=== PATIENT | female | born 1985 | race Hispanic/Latino ===

== ENCOUNTER 2018-12-19 18:22 | Observation (INO) | payer MEDICAID ==
[~2018-12-19] VITALS: Ht 170.2 cm; Wt 97.1 kg
[~2018-12-19 18:22] MED LIST: ACET-2743 PO
[2018-12-19 19:30] VITALS: BP 125/67
[2018-12-19 20:28] LABS: HEMATOCRIT 30.2 % (36-48); MEAN CORPUSCULAR HGB CONC 31.5 g/dL (32.0-36.0); MEAN CORPUSCULAR VOLUME 66.7 fL (79-99); NUCLEATED RED BLOOD CELLS 0.1 % (0.0-0.19); PLATELET COUNT (AUTO) 278 K/uL (130-400); RED BLOOD CELL COUNT(AUTO) 4.53 MIL/uL (4.00-5.50); RED CELL DISTRIBUTION WIDTH 18.1 % (11.0-15.5); WHITE BLOOD COUNT (AUTO) 6.3 K/uL (4.8-10.8)
[2018-12-19 20:33] LABS: CREATININE 0.5 mg/dL (0.5-1.5); POTASSIUM 3.8 mmol/L (3.5-5.1)
--- NOTE | 2018-12-19 21:25 | NUR ---
Patient admitted ( Direct admit from the clinic.: Patient came in ambulatory a direct admit from the clinic of Dr. Monge chief complaints nausea and vomiting diagnosis Hyperemesis. Patient oriented to room, call light given Plan of care discussed with pt. verbalizes understanding.
[2018-12-19] MEDS: DEXTROSE 5%-LACTATED RINGERS 1,000 ML IV SCH (21:34)
[2018-12-19] MEDS: ONDANSETRON HCL 4 MG/2 ML VIAL IVP PRN (21:34)
--- NOTE | 2018-12-19 21:34 | NUR ---
Patient: Patient claimed, "I felt nauseated." Zofran 4 mg SIVP given.
[2018-12-19] MEDS ORDERED: ONDA8TAB5 PO (21:43)
[2018-12-19] MEDS ORDERED: METO5 PO (21:43)
[2018-12-19] MEDS ORDERED: FERR-82 PO (21:43)
[2018-12-19 23:01] VITALS: BP 100/57
[2018-12-20] MEDS: DEXTROSE 5%-LACTATED RINGERS 1,000 ML IV SCH ×3 (01:42→15:47)
[2018-12-20 05:59] VITALS: BP 112/69
[2018-12-20 07:45] VITALS: BP 103/64
[2018-12-20] MEDS: ONDANSETRON HCL 4 MG/2 ML VIAL IVP PRN ×2 (10:15→18:22)
[2018-12-20 12:05] VITALS: BP 104/57
[2018-12-20 16:11] VITALS: BP 100/57
--- NOTE | 2018-12-20 20:15 | NUR ---
PATIENT; PATIENT SITTING ON BED, HAD SHOWERED NO COMPLAINTS OF PAIN. IV FLUID OF D5LR HOOKED BACK BUT SHE COMPLAINED OD PAIN ON THE SITE. IV SITE SLIGHTLY TENDER, PINK AND SWOLLEN. NEW IV SITE STARTED ON HER LEFT HAND. RIGHT FOREARM IV DISCONTINUED. PLAN OF CARE DISCUSSED WITH PATIENT VERBALIZES UNDERSTANDING.
[2018-12-20 20:21] VITALS: BP 101/57
[2018-12-21] MEDS: ONDANSETRON HCL 4 MG/2 ML VIAL IVP PRN ×2 (00:24→06:13)
[2018-12-21] MEDS: DEXTROSE 5%-LACTATED RINGERS 1,000 ML IV SCH ×2 (00:36→07:18)
[2018-12-21 01:33] VITALS: BP 104/57
[2018-12-21 05:52] VITALS: BP 103/59
[2018-12-21 08:10] VITALS: BP 92/57
--- NOTE | 2018-12-21 11:55 | NUR ---
DISCHARGE PATIENT LEFT UNIT VIA WHEELCHAIR WITH BELONGINGS IN HAND. PERSONAL VEHICLE USED FOR TRANSPORTATION. NO COMPLAINTS OR CONCERNS ADDRESSED ON DISCHARGE.
== END 2018-12-21 11:55 | disposition home or self-care (01) ==
LOC: WSH 18:22
PROVIDERS: ADMIT Specialist; ATTEND Specialist
DX: O21.0 Mild hyperemesis gravidarum (principal); Z3A.12 12 weeks gestation of pregnancy; Z23 Encounter for immunization
CPT/HCPCS: 36415; 80048; 85027; 96374; 96376 ×2; G0008; G0378 ×43; J2405 ×5; Q2035

== ENCOUNTER 2019-10-04 10:27 | Observation (INO) | payer MEDICAID ==
[~2019-10-04] VITALS: Ht 175.3 cm; Wt 119.7 kg
[~2019-10-04 10:27] MED LIST changes: +FERR-82 PO; +METO5 PO; +ONDA8TAB5 PO
[2019-10-04] MEDS ORDERED: PHARMACY COMMUNICATION MISC SCH (10:45)
[2019-10-04 11:09] LABS: APPEARANCE,URINE Clear (CLEAR); BILIRUBIN,URINE Negative (NEGATIVE); COLOR,URINE Yellow (YELLOW); GLUCOSE, URINE (UA) Negative (NEGATIVE); KETONES,URINE Negative (NEGATIVE); LEUKOCYTE ESTERASE ,URINE Moderate (NEGATIVE); NITRATE,URINE Negative (NEGATIVE); OCCULT BLOOD,URINE Large (NEGATIVE); PH,URINE 6.5 (5.0-8.0); PROTEIN,URINE Negative (NEGATIVE)
[2019-10-04 11:29] LABS: BACTERIA,URINE Rare /HPF (None Seen); RBC,URINE >100 /HPF (0-1); SQUAMOUS EPITHELIAL CELL,UR Rare /HPF (0-2)
[2019-10-04 11:30] LABS: MUCUS,URINE Few LPF (None Seen)
[2019-10-04] MEDS ORDERED: ACETAMINOPHEN EXTRA STRENGTH 500 MG TABLET PO PRN (12:15)
[2019-10-04] MEDS ORDERED: ACETAMINOPHEN EXTRA STRENGTH 500 MG TABLET ONE (12:26)
[2019-10-04] MEDS ORDERED: CEFAZOLIN SODIUM 1 GM VIAL ONE (12:26)
[2019-10-04] MEDS: CELESTONE SOLUSPAN 6 MG/ML 5ML VIAL IM SCH (12:29)
[2019-10-04] MEDS ORDERED: ACETAMINOPHEN-CODEINE 300/30MG TAB PO PRN (16:00)
[2019-10-04 17:12] VITALS: BP 109/57
[2019-10-04] MEDS ORDERED: PNV1TABL17 PO (18:23)
[2019-10-04 19:32] VITALS: BP 110/69
[2019-10-04] MEDS: CEFAZOLIN SODIUM 1 GM VIAL IVP SCH ×2 (20:15→20:33)
[2019-10-04] MEDS: LACTATED RINGERS 1000ML 1,000 ML IV SCH (20:15)
--- NOTE | 2019-10-04 22:00 | NUR ---
PT. SAID SHE HAS NO FURTHER VAGINAL BLEEDING ALL DAY, BUT CLAIMED THAT THERE'S PINKISH DISCHARGE WHENEVER SHE WIPED. Addendum: 10/04/19 at 2346 by GIO CORDOVA RN RN Amended: Links added.
--- NOTE | 2019-10-04 23:30 | NUR ---
NST STARTED AT 2150 AND ENDED AT 2330. MONITOR'S STRIPT DOUBLE CHECKED BY Ranjan FLORES NURSE. Addendum: 10/04/19 at 2346 by GIO CORDOVA RN RN Amended: Links added.
[2019-10-04 23:52] VITALS: BP 118/67
[2019-10-05] MEDS: LACTATED RINGERS 1000ML 1,000 ML IV SCH ×4 (02:16→22:11)
[2019-10-05 03:50] VITALS: BP 100/55
[2019-10-05] MEDS: CEFAZOLIN SODIUM 1 GM VIAL IVP SCH ×3 (04:36→21:06)
[2019-10-05 07:21] VITALS: BP 107/57
[2019-10-05] MEDS: CELESTONE SOLUSPAN 6 MG/ML 5ML VIAL IM SCH (11:54)
[2019-10-05 12:15] VITALS: BP 108/60
[2019-10-05] MEDS: ACETAMINOPHEN EXTRA STRENGTH 500 MG TABLET PO PRN (14:34)
[2019-10-05 16:00] VITALS: BP 117/68
--- NOTE | 2019-10-05 16:00 | NUR ---
PATIENT WAS TAKEN VIA W/C TO FAMILY VEHICLE IN STABLE CONDITION. BABY DISCHARGE WITH MOTHER AT THIS TIME TO SPOUSE. Addendum: 10/05/19 at 1606 by YONAS DAO RN ENTRY ON WRONG PATIENT.
[2019-10-05 19:22] VITALS: BP 99/47
--- NOTE | 2019-10-05 21:37 | NUR ---
NST: NST started US and [place] applied to abdomen searching Heart Tone. Patient advice ti push button evrytime she feels the baby moves. She verbalizes understanding. NST ended at 2214. Baseline is 130 with good variability, accelerations noted with 1 contraction 50 seconds.
[2019-10-05 23:37] VITALS: BP 96/46
[2019-10-06] MEDS: ACETAMINOPHEN EXTRA STRENGTH 500 MG TABLET PO PRN ×2 (01:08→10:23)
[2019-10-06 03:33] VITALS: BP 92/48
[2019-10-06] MEDS: CEFAZOLIN SODIUM 1 GM VIAL IVP SCH ×2 (04:23→11:40)
[2019-10-06] MEDS: LACTATED RINGERS 1000ML 1,000 ML IV SCH (07:25)
[2019-10-06 07:57] LABS: BASOPHILS % (AUTO) 0.1 % (0.0-5.0); HEMATOCRIT 30.5 % (36-48); LYMPHOCYTES % (AUTO) 10.3 % (21.0-51.0); MEAN CORPUSCULAR HEMOGLOBIN 24.2 pg (27.0-33.0); MEAN CORPUSCULAR HGB CONC 32.2 g/dL (32.0-36.0); MEAN CORPUSCULAR VOLUME 75.2 fL (79-99); MONOCYTES % (AUTO) 5.2 % (3.0-13.0); NEUTROPHILS % (AUTO) 84.4 % (40.0-77.0); PLATELET COUNT (AUTO) 200 K/uL (130-400); RED BLOOD CELL COUNT(AUTO) 4.06 MIL/uL (4.00-5.50); RED CELL DISTRIBUTION WIDTH 15.5 % (11.0-15.5); WHITE BLOOD COUNT (AUTO) 10.3 K/uL (4.8-10.8)
[2019-10-06 08:25] VITALS: BP 112/63
--- NOTE | 2019-10-06 08:30 | NUR ---
DR. BOOTHE ROUNDED ON PATIENT AND DISCHARGED PATIENT TO HOME AFTER NST IS DONE AND 1200 ANCEF DOSE IS GIVEN. PATIENT STABLE AND DENIES FEELING ANY CONTRACTIONS. DR. BOOTHE ASKED IF HE STILL WANTED NST ON PATIENT AND INDICATED YES PRIOR TO DISCHARGE.
--- NOTE | 2019-10-06 09:35 | NUR ---
PATIENT WAS PLACED ON MONITOR AND STRIP WAS REACTIVE WITH NO CONTRACTIONS.
[2019-10-06 12:00] VITALS: BP 95/60
--- NOTE | 2019-10-06 12:15 | NUR ---
DISCHARGE INSTRUCTIONS GIVEN AND VERBALIZED UNDERSTANDING INSTRUCTIONS GIVEN. NO SCRIPT GIVEN AND PATIENT TO TAKE TYLENOL OVER THE COUNTER INDICATED FOR DISCOMFORT
--- NOTE | 2019-10-06 14:30 | NUR ---
PATIENT'S RIDE SHOWED UP AND PATIENT WAS TAKEN VIA WC TO FAMILY VEHICLE AND WAS DISCHARGED TO SPOUSE AND CHILDREN IN STABLE CONDTION.
== END 2019-10-06 14:30 | disposition home or self-care (01) ==
LOC: LDH 10:27 → WSH 17:10
PROVIDERS: ADMIT Specialist; ATTEND Specialist
DX: O46.93 Antepartum hemorrhage, unspecified, third trimester (principal); O9A.213 Injury, poisoning and certain other consequences of external causes complicating pregnancy, third trimester; O62.9 Abnormality of forces of labor, unspecified; W19.XXXA Unspecified fall, initial encounter; Y93.89 Activity, other specified; Y92.89 Other specified places as the place of occurrence of the external cause; Z3A.35 35 weeks gestation of pregnancy
CPT/HCPCS: 36415 ×2; 59025 ×2; 76805; 76819; 81001; 85025; 85460; 87088; 96372 ×2; 96374; 96376 ×2; G0378 ×50; J0690 ×7; J0702 ×2; J7120 ×3; 96360; 96361